=== PATIENT | female | born 1980 | race Caucasian/White ===

== ENCOUNTER 2017-10-13 21:06 | Emergency (ER) | payer SELFPAY ==
[2017-10-13 21:54] LABS: Barbiturates NEGATIVE; Benzodiazepines POSITIVE; Cocaine NEGATIVE; Opiates NEGATIVE; Phencyclidine NEGATIVE; THC Cannibis NEGATIVE
[2017-10-13 21:58] LABS: Urine Blood NEGATIVE (NEG); Urine Glucose NEGATIVE (NEG); Urine Protein NEGATIVE (NEG); Urine Specific Gravity 1.015 (1.005-1.030)
[2017-10-13 21:58] LABS: Absolute Lymphocytes (CBC) 2.4 K/uL (0.7-4.9); Absolute Monocytes 0.6 K/uL (0.1-1.3); Absolute Neutrophil 4.6 K/uL (1.8-8.0); Basophils % 0.8 % (0-1.3); Eosinophils % 3.2 % (0-4.4); Hematocrit 41.4 % (36.0-45.0); Lymphocytes % 30.3 % (15.3-44.8); MCH 31.4 pg (27.0-35.0); MPV 9.4 fL (7.6-11.3); Monocytes % 7.3 % (3.3-12.3); RBC Red Blood Cell Count 4.45 M/uL (3.86-4.86)
[2017-10-13 21:59] LABS: METHAMPHETAM POSITIVE
[2017-10-13 22:04] LABS: Protime INR 1.02
[2017-10-13 22:14] LABS: Bicarbonate 31 mEq/L (21-31); Glucose Level 86 mg/dL (65-120); Potassium 3.5 mEq/L (3.6-5.0); Sodium Level 140 mEq/L (135-145)
[2017-10-13 22:20] LABS: ALT/SGPT 15 IU/L (10-60); AST/SGOT 15 IU/L (10-42); Albumin 4.1 g/dL (3.2-5.5); Alkaline Phosphatase 51 IU/L (42-121); BUN Blood Urea Nitrogen 12 mg/dL (6-20); Bilirubin Direct 0.1 mg/dL (0-0.2); Bilirubin Total 0.3 mg/dL (0.3-1.2); Creatine Phosphokinase 114 IU/L (22-269); Protein, Total 6.6 g/dL (6.0-8.3)
[2017-10-13 22:21] LABS: CKMB Creatine Kinase MB 2.4 ng/ml (0.3-4.0)
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
[2017-10-13 23:33] VITALS: TEMP 98.2
[2017-10-13 23:34] VITALS: O2SAT 99
[2017-10-13 23:35] VITALS: BP 127/62
--- NOTE | 2017-10-14 06:28 | EKG ---
Test Date: 2017-10-13 Test Time: 21:30:34 Dehydrator Tender: ISMA MEASUREMENT RESULTS: Intervals: Rate: 70 UT: 112 QRSD: 76 QT: 386 QTc: 416 [place]: P: 39 UT: 112 QRS: 76 T: 66 INTERPRETIVE STATEMENTS: Normal sinus rhythm with sinus arrhythmia Normal ECG Compared to ECG 08/19/2017 18:15:44 No significant changes Electronically Signed On 10-14-17 06:28:11 CDT by Sridhar Rubio
--- NOTE | 2017-10-14 08:35 | RAD REPORT ---
EXAM DESCRIPTION: Allison Single View10/13/2017 10:16 pm CLINICAL HISTORY: Chest pain COMPARISON: August 2017 FINDINGS: The lungs appear clear of acute infiltrate. The heart is normal size IMPRESSION: No acute abnormalities displayed
== END 2017-10-13 23:27 | disposition home or self-care (01) ==
LOC: ER 21:06
DX: R07.9 Chest pain, unspecified (principal); F31.9 Bipolar disorder, unspecified; F17.210 Nicotine dependence, cigarettes, uncomplicated
CPT/HCPCS: 36415; 71045; 80048; 80076; 80307; 81003; 81025; 82550; 82553; 83735; 83880; 84484; 85025; 85610; 85730; 93005; 99285